=== PATIENT | female | born 1995 | race Caucasian/White ===

== ENCOUNTER 2024-10-20 07:17 | Inpatient (IN) ==
[2024-10-20] MEDS ORDERED: ACETAMINOPHEN 500 MG TAB PO PRN (08:22)
[2024-10-20] MEDS ORDERED: LIDOCAINE 1% LOCAL 20 ML VIAL INFIL PRN (08:22)
--- NOTE | 2024-10-20 09:04 | History & Physical Report ---
Date of Service October 20, 2024 Assessment & Plan (1) Polyhydramnios affecting in third trimester: (2) with 39 completed weeks gestation: Plan: 29-year-old G [id number] at 39 weeks and 2 days of gestation presenting today for induction of labor at term for polyhydramnios, Vital signs stable afebrile, GBS negative, heart rate reassuring, Cervix favorable, Plan to admit, monitor, labs, IV oxytocin per protocol, epidural per patient request, AROM when able, All questions were answered. (3) Encounter for induction of labor: Admission and Anticipated Discharge Date Admission Date: October 20, 2024 History of Present Illness Primary Care Provider: Uziel Mohamud patient is a 32-year-old -0-1-1 at 39.2 weeks of gestation who was scheduled for IOL for polyhydramnios. No contractions, leakage of fluid or vaginal bleeding. She reports good movements. Her has been complicated by, 1. Polyhydramnios GABRIELA was 30 cm, scheduled to be induced at 39 weeks, EFW was 3800 gr on 10/13, 89th %ile, repeat 50 g Glucola was within normal limits 2. history of Ulcerative colitis GBS negative Allergies Allergy/AdvReac Type Severity Reaction Status Date / Time azithromycin Allergy Intermediate Rash Verified 10/20/24 07:41 [From Zithromax Z-Eyal] tramadol Allergy Intermediate Rash Verified 10/20/24 07:41 Home Medications Medication Instructions Recorded Confirmed Type famotidine 20 mg tablet (Pepcid) 20 mg PO HS 10/16/24 10/20/24 History vits no.124-ferrous fum 1 tab PO DAILY 10/16/24 10/20/24 History 27 mg iron-folic acid 800 mcg tablet ( Vitamin) Patient History Surgical History (Updated 10/20/24 @ 08:43 by Monica Marrufo RN) History of dental surgery History of arthroscopic knee surgery History of cholecystectomy History of tonsillectomy and adenoidectomy History of tympanostomy Social History Smoking Status: Former smoker Tobacco Type: Cigarettes Hx Alcohol Use: No Hx Substance Use: No Preferred Language: Niue[place] Acting Teacher Required: No Beliefs That Will Affect Care: None marital status: Current Living Situation: Spouse and Family Current Living Situation Comment: Patient lives with her and daughter. Feels Safe at Home: Yes Safety Concerns: Feels Safe At This Time Assistive Devices: None OB History Full-term on 2021, 8 pound 1 ounce, female, no complications V[employer] History no history of STDs, no history of chlamydia, gonorrhea, herpes. Review of Systems as per Subjective / HPI Physical Exam Constitutional: WD/WN, vitals as above well developed, well nourished and + cushingoid Gastrointestinal (Abdomen): normal bowel sounds, soft, nontender, no hepatosplenomegaly Genitourinary: normal external appearance OB Exam Abdomen: + vertex ( Confirmed by bedside ultrasound) Manual OB Exam: + cervical dilation 4 cm, + cervical effacement 30% and + station high ( ballotable had) OB Exam Monitor Tracing: + external FHT monitor used, + external uterine monitor used and + category I Results & Data Vital Signs (Past 12 Hours) Vital Signs Temp Pulse Resp BP 10/20/24 07:45 36.7 C 109 H 16 120/79 10/20/24 07:30 109 H 120/79
[2024-10-20 09:25] LABS: Hematocrit (blood only) 34.0 % (37.0-47.0); Hemoglobin 10.7 g/dl (12.0-16.0); Mean Corpuscular Hemoglobin 27.4 pg (25.0-34.0); Mean Corpuscular Volume 87.2 fL (80.0-100.0); Platelet Count 201 K/uL (130-400); RDW Standard Deviation 42.1 fL (36.4-46.3); Red Blood Count 3.90 M/uL (4.20-5.40); White Blood Count 8.99 K/ul (4.8-10.8)
[2024-10-20] MEDS: LACTATED RINGER'S 1,000 ML IV PRN (09:26)
[2024-10-20] MEDS: OXYTOCIN 30 UNITS/NSS 30 UNITS/500 ML BAG IV PRN ×2 (09:27→19:05)
[2024-10-20 09:43] LABS: Alanine Aminotransferase 10.0 U/L (7-52); Albumin Globulin Ratio 1.3 (0.9-2); Alkaline Phosphatase 132.0 U/L (34-104); Anion Gap 6.0 (3-11); Bilirubin,Total 0.4 mg/dl (0.2-1.0); Blood Urea Nitrogen 9.0 mg/dl (6-23); Calcium 8.9 mg/dl (8.6-10.3); Carbon Dioxide 24.0 mmol/L (21-32); Chloride 107.0 mmol/L (98-107); Creatinine Clr Calc Pharmacy 137.0 ml/min; Globulin 2.3 gm/dl (2.5-4.0); Glucose 69.0 mg/dl (70-99(Fasting)); Potassium 4.0 mmol/L (3.5-5.1); Sodium 137.0 mmol/L (136-145); Total Protein 5.4 gm/dl (6.0-8.3)
[2024-10-20] MEDS: LIDOCAINE 2%/EPINEPHRINE 1:200,000 20 ML PF ONE (13:26)
[2024-10-20] MEDS: fentANYL 2 MCG/ML BUPIVacaine 0.125%-NSS 100ML BAG ONE (13:28)
--- NOTE | 2024-10-20 13:37 | Anesthesiology Consultation ---
Date of Service October 20, 2024 Assessment & Plan Chart Review Chart Review: Acceptable Risk for Labor Epidural Consults Requested none History Height/Weight Height: 5 ft 6 in Weight: 92.079 kg Allergies Allergy/AdvReac Type Severity Reaction Status Date / Time azithromycin Allergy Intermediate Rash Verified 10/20/24 07:41 [From Zithromax Z-Eyal] tramadol Allergy Intermediate Rash Verified 10/20/24 07:41 Medications Home Medications Medication Instructions Recorded Confirmed Last Taken famotidine 20 mg tablet (Pepcid) 20 mg PO HS 10/16/24 10/20/24 10/19/24 21:00 vits no.124-ferrous fum 1 tab PO DAILY 10/16/24 10/20/24 10/20/24 06:30 27 mg iron-folic acid 800 mcg tablet ( Vitamin) Active Medications Generic Name Dose Route Start Last Admin Trade Name Freq PRN Reason Stop Dose Admin Lactated Ringer's 1,000 mls @ 150 mls/hr 10/20/24 08:22 10/20/24 13:06 Lr IV 10/22/24 08:21 150 mls/hr .[id number] PRN Infusion L&D Protocol Protocol Oxytocin 30 units in 500 mls @ 16 mls/hr 10/20/24 08:25 10/20/24 13:00 Pitocin 30 Units/Nss IV 10/22/24 08:24 0.96 units/hr .Q24H PRN 16 mls/hr Labor Induction/Augmentation Titration Protocol 0.96 UNITS/HR Past Surgical History Surgical History (Updated 10/20/24 @ 08:43 by Monica Marrufo RN) History of dental surgery History of arthroscopic knee surgery History of cholecystectomy History of tonsillectomy and adenoidectomy History of tympanostomy Social History Smoking Status: Former smoker Hx Alcohol Use: No Hx Substance Use: No substance use type: does not use Physical Exam Vital Signs Last Vital Signs Temp 36.7 C 10/20/24 11:31 Pulse 94 H 10/20/24 13:33 Resp 18 10/20/24 11:31 BP 137/91 10/20/24 13:28 Pulse Ox 99 10/20/24 13:33 Testing Laboratory Results 10/20/24 09:05 10/20/24 09:05
[2024-10-20] MEDS ORDERED: BUPIVACAINE 0.25% PF 30 ML VIAL EPI PRN (13:38)
[2024-10-20] MEDS ORDERED: NALBUPHINE HCL INJ 10 MG/ML AMP IV PRN (13:38)
[2024-10-20] MEDS ORDERED: NALOXONE HCL 0.4 MG/1 ML VIAL/CARP IV PRN (13:38)
[2024-10-20] MEDS ORDERED: LIDOCAINE 2% MPF LOCAL 5 ML VIAL EPI PRN (13:38)
[2024-10-20] MEDS ORDERED: fentANYL 2 MCG/ML BUPIVacaine 0.125%-NSS 100ML BAG EPI PRN (13:38)
[2024-10-20] MEDS ORDERED: NALOXONE HCL 1 MG in SODIUM CHLORIDE 0.9% 1,000 ML IV PRN (13:38)
[2024-10-20] MEDS ORDERED: SODIUM CHLORIDE 0.9% PF INJ 10 ML VIAL EPI PRN (13:38)
[2024-10-20] MEDS ORDERED: diphenhydrAMINE 50 MG/ML VIAL IV PRN (13:38)
[2024-10-20] MEDS ORDERED: ROPIVACAINE 0.5% PF 5 MG/ML 20 ML VIAL EPI PRN (13:38)
[2024-10-20] MEDS: BUPIVACAINE 0.25% PF 30 ML VIAL ONE (13:55)
[2024-10-20] MEDS: SODIUM CHLORIDE 0.9% PF INJ 10 ML VIAL ONE (13:55)
[2024-10-20] MEDS: SODIUM CHLORIDE 0.9% PF INJ 10 ML VIAL EPI STA (13:56)
[2024-10-20] MEDS: LIDOCAINE 2%/EPINEPHRINE 1:200,000 20 ML PF EPI STA (13:56)
[2024-10-20] MEDS: BUPIVACAINE 0.25% PF 30 ML VIAL EPI STA (13:56)
--- NOTE | 2024-10-20 14:01 | Obstetrical Progress Note ---
Date of Service October 20, 2024 Assessment & Plan Admission and Anticipated Discharge Date Admission Date: October 20, 2024 Subjective Patient seen and examined. Spontaneous ruptured at 1320 5 PM, confirmed by bedside by nitrazine by her nurse, it was minimal amount. received epidural for pain and left side is numb she still feels pain on the right side, Vaginal exam, cervix is 4-5 cm dilated, 50% effaced, still there is a bulging bag, AROM while fundal pressure was applied by her nurse,, abundant amount of clear fluid was obtained, head is at -3 station but engaged, heart rate category 1, Ewa Gentry showing contractions every 1 to 3 minutes, oxytocin is at 16MIU/MIN continue monitor closely Results & Data Vital Signs (Past 12 Hours) Vital Signs Temp Pulse Resp BP Pulse Ox 10/20/24 13:58 99 10/20/24 13:58 98 H 10/20/24 13:53 99 10/20/24 13:53 110 H 10/20/24 13:49 106 H 10/20/24 13:49 119/66 10/20/24 13:48 99 10/20/24 13:48 104 H 10/20/24 13:43 99 10/20/24 13:43 90 10/20/24 13:42 94 H 10/20/24 13:42 130/72 10/20/24 13:38 99 10/20/24 13:38 86 10/20/24 13:33 99 10/20/24 13:33 94 H 10/20/24 13:28 98 10/20/24 13:28 75 10/20/24 13:28 137/91 10/20/24 13:24 94 10/20/24 13:24 84 10/20/24 13:23 100 10/20/24 13:23 75 10/20/24 13:22 77 10/20/24 13:22 129/75 10/20/24 13:18 100 10/20/24 13:18 75 10/20/24 13:13 98 10/20/24 13:13 94 H 10/20/24 13:08 99 10/20/24 13:08 85 10/20/24 13:03 99 10/20/24 13:03 85 10/20/24 12:58 99 10/20/24 12:58 84 10/20/24 12:37 84 10/20/24 12:37 122/75 10/20/24 11:32 85 10/20/24 11:32 122/69 10/20/24 11:31 18 10/20/24 11:31 36.7 C 18 10/20/24 10:21 85 10/20/24 10:21 128/81 10/20/24 09:21 96 H 10/20/24 09:21 126/79 10/20/24 07:45 36.7 C 109 H 16 120/79 10/20/24 07:30 109 H 120/79
[2024-10-20] MEDS ORDERED: NURSING L&D Epidural Breakthrough Pain Update ONE (14:11)
[2024-10-20] MEDS: ONDANSETRON INJ 2 MG/ML 2 ML VIAL IV PRN (15:13)
--- NOTE | 2024-10-20 16:00 | Obstetrical Progress Note ---
Date of Service October 20, 2024 Assessment & Plan Admission and Anticipated Discharge Date Admission Date: October 20, 2024 Subjective Anesthesia redosed epidural x 2 blood pressures had been running low. Nursing team gave her 3 doses of IV ephedrine. Patient feels well no complaints other than being numb. Blood pressures improved with IV fluid bolus and sitting up. Cervix is 9 cm dilated, 90% effaced, head is 0 station, patient does not feel pressure nor urge to push, heart rate category 1, Continue to monitor closely, Anticipate Results & Data Vital Signs (Past 12 Hours) Vital Signs Temp Pulse Resp BP Pulse Ox 10/20/24 15:56 100 H 10/20/24 15:56 89/50 L 10/20/24 15:53 99 10/20/24 15:53 102 H 10/20/24 15:51 85 10/20/24 15:51 119/67 10/20/24 15:48 99 10/20/24 15:48 84 10/20/24 15:47 78 10/20/24 15:47 109/62 10/20/24 15:43 98 10/20/24 15:43 83 10/20/24 15:41 92 10/20/24 15:41 90 10/20/24 15:41 79 10/20/24 15:41 110/62 10/20/24 15:38 98 10/20/24 15:38 102 H 10/20/24 15:36 83 10/20/24 15:36 112/61 10/20/24 15:33 99 10/20/24 15:33 88 10/20/24 15:32 94 10/20/24 15:32 104 H 10/20/24 15:30 85 10/20/24 15:30 90/54 L 10/20/24 15:28 100 10/20/24 15:28 95 H 10/20/24 15:26 100 H 10/20/24 15:26 90/54 L 10/20/24 15:23 99 10/20/24 15:23 106 H 10/20/24 15:22 93 H 10/20/24 15:22 90/50 L 10/20/24 15:21 85 10/20/24 15:21 104/58 L 10/20/24 15:19 77 10/20/24 15:19 104/56 L 10/20/24 15:18 100 10/20/24 15:18 90 10/20/24 15:17 93 H 10/20/24 15:17 64/37 L 10/20/24 15:13 100 10/20/24 15:13 81 10/20/24 15:13 100/54 L 10/20/24 15:12 83 10/20/24 15:12 76/40 L 10/20/24 15:11 93 H 10/20/24 15:11 79/42 L 10/20/24 15:09 81 10/20/24 15:09 78/53 L 10/20/24 15:09 92 H 10/20/24 15:09 67/40 L 10/20/24 15:08 100 10/20/24 15:08 82 10/20/24 15:06 83 10/20/24 15:06 71/39 L 10/20/24 15:05 94 10/20/24 15:05 59 L 10/20/24 15:03 98 10/20/24 15:03 82 10/20/24 14:58 99 10/20/24 14:58 81 10/20/24 14:55 88 10/20/24 14:55 98/50 L 10/20/24 14:53 99 10/20/24 14:53 87 10/20/24 14:48 98 10/20/24 14:48 65 10/20/24 14:43 98 10/20/24 14:43 84 10/20/24 14:42 77 10/20/24 14:42 99/50 L 10/20/24 14:38 99 10/20/24 14:38 91 H 10/20/24 14:33 99 10/20/24 14:33 98 H 10/20/24 14:28 100 10/20/24 14:28 78 10/20/24 14:24 126 H 10/20/24 14:24 102/54 L 10/20/24 14:23 99 10/20/24 14:23 114 H 10/20/24 14:21 126 H 10/20/24 14:21 98/56 L 10/20/24 14:18 99 10/20/24 14:18 99 H 10/20/24 14:17 16 10/20/24 14:17 37.1 C 16 10/20/24 14:17 93 H 10/20/24 14:17 111/55 L 10/20/24 14:15 102 H 10/20/24 14:15 110/61 10/20/24 14:13 99 10/20/24 14:13 97 H 10/20/24 14:08 100 10/20/24 14:08 111 H 10/20/24 14:04 95 H 10/20/24 14:04 117/60 10/20/24 14:03 99 10/20/24 14:03 94 H 10/20/24 13:58 99 10/20/24 13:58 98 H 10/20/24 13:53 99 10/20/24 13:53 110 H 10/20/24 13:49 106 H 10/20/24 13:49 119/66 10/20/24 13:48 99 10/20/24 13:48 104 H 10/20/24 13:43 99 10/20/24 13:43 90 10/20/24 13:42 94 H 10/20/24 13:42 130/72 10/20/24 13:41 16 10/20/24 13:41 37.1 C 16 10/20/24 13:38 99 10/20/24 13:38 86 10/20/24 13:33 99 10/20/24 13:33 94 H 10/20/24 13:28 98 10/20/24 13:28 75 10/20/24 13:28 137/91 10/20/24 13:24 94 10/20/24 13:24 84 10/20/24 13:23 100 10/20/24 13:23 75 10/20/24 13:22 77 10/20/24 13:22 129/75 10/20/24 13:18 100 10/20/24 13:18 75 10/20/24 13:13 98 10/20/24 13:13 94 H 10/20/24 13:08 99 10/20/24 13:08 85 10/20/24 13:03 99 10/20/24 13:03 85 10/20/24 12:58 99 10/20/24 12:58 84 10/20/24 12:37 84 10/20/24 12:37 122/75 10/20/24 11:32 85 10/20/24 11:32 122/69 10/20/24 11:31 18 10/20/24 11:31 36.7 C 18 10/20/24 10:21 85 10/20/24 10:21 128/81 10/20/24 09:21 96 H 10/20/24 09:21 126/79 10/20/24 07:45 36.7 C 109 H 16 120/79 10/20/24 07:30 109 H 120/79
[2024-10-20] MEDS ORDERED: OXYTOCIN 30 UNITS/NSS 30 UNITS/500 ML BAG IV PRN (18:01)
[2024-10-20] MEDS ORDERED: HYDROCORTISONE ACETATE 25 MG SUPP PR PRN (18:01)
--- NOTE | 2024-10-20 18:04 | Delivery Summary ---
Vaginal Delivery Summary Date of Service October 20, 2024 Vaginal Delivery Summary Patient was found to be fully dilated and desires to push. She pushed for about 15 min and delivered the head and then shoulders with minimal traction. The baby was handed off to the mother. The cord was clampedx2 and cut at 1 minute. The vagina and perineum were checked and found to have small 1sr degree perineal laceration. The vaginal mucosa was repaired with 2/0 vicryl and skin on subcuticular fashi on. The placenta was delivered spontaneously as intact and complete. The uterus was explored and found to be empty. QBL was 281 ml. The fundus was firm The baby was a viable female infant, Apgars 9/10, the weight is pending The mother and the baby tolerated the procedure well. No complications happened and I was present during whole procedure.
[2024-10-20] MEDS: DIPHTHER/TETAN/PERTUS Vaccine (Tdap, Adol/Adult) 0.5mL IM ONE (18:14)
--- NOTE | 2024-10-20 18:53 | Anesthesia Procedure Note ---
Date of Service October 20, 2024 Anesthesia Post Epidural Note Vital Signs Vital Signs: Temp Pulse Resp BP Pulse Ox O2 Del Method 36.6 C 78 18 127/65 98 Room Air 10/20/24 18:00 10/20/24 18:45 10/20/24 18:00 10/20/24 18:45 10/20/24 18:13 10/20/24 18:00 Pain Intensity Lower Abdomen: Pain Intensity: 6 Notes Mental Status: alert / awake / arousable Nausea / Vomiting: adequately controlled Pain: adequately controlled Airway Patency, RR, SpO2: stable & adequate BP & HR: stable & adequate Hydration State: stable & adequate Neuraxial Anesthesia: was administered and sensory block is resolving Anesthetic Complications: no major complications apparent and Pt Satisfied with anesthetic care Epidural: Removed without complications and With tip intact
[2024-10-20] MEDS ORDERED: OXYTOCIN 30 UNITS/NSS 30 UNITS/500 ML BAG IV SCH (19:00)
[2024-10-20] MEDS: BENZOCAINE 20% SPRY 85 APPLN/85 GM CAN EXT PRN (19:27)
[2024-10-20] MEDS: ACETAMINOPHEN 325 MG TAB PO PRN (19:27)
[2024-10-20] MEDS: METHYLERGONOVINE MALEATE 0.2 MG TAB PO STA (19:27)
[2024-10-20] MEDS: IBUPROFEN 600 MG TAB PO PRN (19:27)
[2024-10-20] MEDS: METHYLERGONOVINE MALEATE 0.2 MG TAB PO SCH (21:38)
[2024-10-20] MEDS: DOCUSATE SODIUM 100 MG CAP PO SCH (21:38)
[2024-10-20] MEDS: FAMOTIDINE 20 MG TAB PO SCH (21:38)
[2024-10-21 07:01] VITALS: RESP 18
[2024-10-21 07:31] LABS: Hematocrit (blood only) 32.8 % (37.0-47.0); Hemoglobin 10.4 g/dl (12.0-16.0); Mean Corpuscular Hemoglobin 27.5 pg (25.0-34.0); Mean Corpuscular Volume 86.8 fL (80.0-100.0); Platelet Count 166 K/uL (130-400); RDW Standard Deviation 42.5 fL (36.4-46.3); Red Blood Count 3.78 M/uL (4.20-5.40); White Blood Count 11.03 K/ul (4.8-10.8)
[2024-10-21] MEDS: PRENATAL VITAMIN 1 TAB PO SCH (07:38)
[2024-10-21] MEDS: FERROUS SULFATE 325 MG TAB PO SCH (07:39)
--- NOTE | 2024-10-21 08:26 | Obstetrical Progress Note ---
Date of Service October 21, 2024 Assessment & Plan Admission and Anticipated Discharge Date Admission Date: October 20, 2024 Subjective abdomen soft and non tender no calf tenderness ambulating well vaginal bleeding scant hgb 10.4 Results & Data Vital Signs (Past 12 Hours) Vital Signs Temp Pulse Resp BP Pulse Ox O2 Del Method 10/21/24 06:59 36.6 C 75 18 114/76 98 Room Air 10/21/24 04:15 36.9 C 74 17 121/79 99 Room Air 10/20/24 23:30 36.9 C 86 17 128/85 98 Room Air 10/20/24 21:30 36.7 C 79 17 125/82 98 Room Air
--- NOTE | 2024-10-21 08:33 | Discharge Summary ---
Date of Service October 21, 2024 Admission HPI Per Admitting Provider patient is a 32-year-old -0-1-1 at 39.2 weeks of gestation who was scheduled for IOL for polyhydramnios. No contractions, leakage of fluid or vaginal bleeding. She reports good movements. Her has been complicated by, 1. Polyhydramnios GABRIELA was 30 cm, scheduled to be induced at 39 weeks, EFW was 3800 gr on 10/13, 89th %ile, repeat 50 g Glucola was within normal limits 2. history of Ulcerative colitis GBS negative Discharge Data Consultations 10/20/24 08:22 Consult Anesthesiology Stat
[2024-10-21 12:08] VITALS: TEMP 98.1
[2024-10-21 15:01] VITALS: BP 115/77; PULSE 75; O2SAT 100
== END 2024-10-21 19:40 | disposition home or self-care (01) | DRG 807 ==
LOC: 4S1 07:17 → 4E2 21:07